=== PATIENT | female | born 1990 | race African-American/Black ===

== ENCOUNTER → 2018-01-25 | Outpatient (CLI) | payer OTHER ==
[~2018-01-25] MED LIST: BREAST PUMP1 MI1; IBUP-232 PO; OXYC1TAB63 PO; SENN1TAB PO
== END ==
LOC: HPND 08:07
PROVIDERS: ATTEND Family Medicine
DX: O99.012 Anemia complicating pregnancy, second trimester (principal); Q77 Osteochondrodysplasia with defects of growth of tubular bones and spine; O35.2XX0 Maternal care for (suspected) hereditary disease in fetus, not applicable or unspecified
CPT/HCPCS: 76811; 76825; 76827; 93325

== ENCOUNTER → 2018-02-15 | Outpatient (CLI) | payer OTHER | LOC: HPND 09:55 | PROVIDERS: ATTEND Family Medicine | DX: O35.1XX0 Maternal care for (suspected) chromosomal abnormality in fetus, not applicable or unspecified (principal); O35.2XX0 Maternal care for (suspected) hereditary disease in fetus, not applicable or unspecified; O99.012 Anemia complicating pregnancy, second trimester; O40.2XX0 Polyhydramnios, second trimester, not applicable or unspecified | CPT/HCPCS: 76816 ==

== ENCOUNTER → 2018-03-08 | Outpatient (CLI) | payer OTHER | LOC: HPND 10:26 | PROVIDERS: ATTEND Family Medicine | DX: O35.1XX0 Maternal care for (suspected) chromosomal abnormality in fetus, not applicable or unspecified (principal); O35.8XX0 Maternal care for other (suspected) fetal abnormality and damage, not applicable or unspecified; O40.2XX0 Polyhydramnios, second trimester, not applicable or unspecified | CPT/HCPCS: 76816 ==